=== PATIENT | female | born 1945 | race Caucasian/White ===

== ENCOUNTER 2018-01-28 08:29 | Emergency (ER) | payer MEDICARE, OTHER, SELFPAY ==
[2018-01-28 08:59] VITALS: BP 173/81; PULSE 78; RESP 16; TEMP 36.9; O2SAT 98; BMI 26.5
[2018-01-28 10:17] VITALS: BP 153/75; PULSE 82; RESP 16; TEMP 36.4; O2SAT 97
--- NOTE | 2018-01-28 10:31 | ED.WEAKNESS ---
HPI - Weakness General Chief complaint: Weakness Stated complaint: HAVEN'T SLEPT IN THREE WEEKS Time Seen by Provider: 01/28/18 09:10 Source: patient and old records reviewed Mode of arrival: ambulatory Limitations: no limitations History of Present Illness HPI Narrative: Patient is a 72-year-old female who presents with overall body weakness and insomnia. She was seen evaluated at [facility] on January 23 for the same. At that time she had blood work and her thyroid checked. Her TSH was noted to be 4.40. She was given a prescription for Ativan to help her sleep at night which she says is only making her more anxious and not helping her sleep. She says that she is able to do things for about 20 min at a time and then she needs to rest. She does like doing things. A month ago she was up from 7 a.m. to 9:30 p.m. on very busy. She is not that way now. She did have is from [place] a few weeks ago which she thinks set at all off. She really has no specific complaints. She has not had any fever headache chest pain cough shortness of breath nausea vomiting or other symptoms. MD Complaint: generalized weakness Related Data Home Medications Medication Instructions Recorded Confirmed levothyroxine 125 mg PO DAILY 01/28/18 01/28/18 lorazepam 0.5 mg PO BEDTIME PRN 01/28/18 01/28/18 Previous Rx's Medication Instructions Recorded levothyroxine 137 mcg PO DAILY #30 cap 01/28/18 Allergies Allergy/AdvReac Type Severity Reaction Status Date / Time No Known Drug Allergies Allergy Verified 01/28/18 08:59 Review of Systems Constitutional Denies increased appetite, Reports lethargy, Reports malaise, Denies night sweats, Denies stops breathing during sleep and Reports weakness Cardiovascular Denies chest pain, Denies irregular heart rhythm, Denies lightheadedness, Denies palpitations, Denies dyspnea, Denies dyspnea on exertion and Denies orthopnea Respiratory Denies cough, Denies dyspnea, Denies dyspnea on exertion and Denies wheezing Gastrointestinal Gastrointestinal: Denies abdominal pain, Denies change in bowel habits, Denies diarrhea, Denies nausea and Denies vomiting Musculoskeletal Denies back pain, Denies muscle weakness, Denies numbness and Denies tingling Integumentary/Breasts Denies pruritus, Denies erythema, Denies rash and Denies wounds Neurologic Denies numbness, Denies tingling and Reports weakness Endocrine Denies palpitations Allergic/Immunologic Denies wheezing PFSH Medical History Hypothyroid (Acute) Exam Initial Vital Signs Initial Vital Signs: Vital Signs Temperature 98.4 F 01/28/18 08:59 Pulse Rate 78 01/28/18 08:59 Respiratory Rate 16 01/28/18 08:59 Blood Pressure 173/81 H 01/28/18 08:59 Pulse Oximetry 98 01/28/18 08:59 GENERAL: Well-appearing, well-nourished and in no acute distress. HEENT: Head atraumatic,EOMI, pupils reactive, face symmetric, moist mucous membranes CARDIOVASCULAR: Regular rate and rhythm without murmurs, rubs or gallops. RESPIRATORY: Breath sounds equal bilaterally, no wheezes rales or rhonchi. ABDOMEN: Soft, nontender. Normoactive bowel sounds all 4 quadrants. No guarding or rebound. EXTREMITIES: Normal range of motion, no clubbing or edema. Neurovascularly intact NEUROLOGICAL: Alert and oriented x4.Normal gait and speech. Cranial nerves II through XII grossly intact. SKIN: Warm, dry, no laceration, no petechiae, no rashes or lesions. Course Orders Ordered: ED Orders 01/28/18 11:26 Complete Blood Count AUTO DIFF Stat Comprehensive Metabolic Panel Stat Discontinued Medications Sodium Chloride (Normal Saline 0.9%) 1,000 mls @ 1,000 mls/hr IV BOLUS ONE Stop: 01/28/18 11:45 Last Admin: 01/28/18 11:29 Dose: 1,000 mls/hr Vital Signs - 8 hr 01/28/18 08:59 01/28/18 10:17 01/28/18 12:40 Temperature 98.4 F 97.6 F 97.6 F Pulse Rate 78 82 87 Respiratory Rate 16 16 18 Blood Pressure 173/81 H Blood Pressure [Left Arm] 153/75 H 159/84 H Pulse Oximetry 98 97 96 MDM - Weakness Lab Data Result diagrams: 01/28/18 11:26 01/28/18 11:26 Lab Results 01/28/18 01/28/18 Range/Units 11:26 11:26 WBC 9.3 (4.5-11.0) X10^3/uL RBC 4.68 (4.0-5.2) X10^6/uL Hgb 13.9 (12.0-16.0) g/dL Hct 41.3 (36-46) % MCV 88.2 (80-100) fL MCH 29.7 (26-34) PG MCHC 33.6 (30-36) % RDW 14.4 (11.6-14.8) % Plt Count 346 (150-400) X10^3/uL Neut % (Auto) 77.2 H (50-75) % Lymph % (Auto) 13.7 L (25-40) % [place] % (Auto) 8.4 (3-14) % Eos % (Auto) 0.1 L (2-4) % Baso % (Auto) 0.6 (0-2) % Neut # (Auto) 7200 H (2609-5721) /uL Sodium 140 (137-145) mmol/L Potassium 3.6 (3.4-5.1) mmol/L Chloride 104 (98-107) mmol/L Carbon Dioxide 27 (22-32) mmol/L BUN 13 (7-17) mg/dL Creatinine 0.50 L (0.52-1.04) mg/dL Estimated GFR > 60.0 (>60) mL/min BUN/Creatinine Ratio 26.0 H (6-22) Glucose 101 (80-110) mg/dL Calcium 9.2 (8.4-10.2) mg/dL Total Bilirubin 0.4 (0.2-1.3) mg/dL AST 18 (14-36) IU/L ALT 22 (9-52) IU/L Alkaline Phosphatase 138 H (38-126) U/L Total Protein 7.6 (6.3-8.2) g/dL Albumin 4.1 (3.5-5.0) g/dL Globulin 3.5 (1.7-4.1) g/dL Albumin/Globulin Ratio 1.2 (1.0-2.8) MDM Narrative Medical decision making narrative: She is feeling better after IV fluids she a sandwich. Of blood work again looks within normal limits. I have reviewed records from [facility]. TSH is elevated at 4.4 which may explain some of her weakness and fatigue but not miss failure her insomnia. I feel like this may be more stress related. Head this time I will increase her levothyroxine. I recommend that she follow up with her primary care doctor to have her TSH rechecked and to see how she is feeling after this medication change. Discharge Plan Departure Patient Disposition: Home, Self-Care Clinical Impression: Hypothyroid Discharge Date/Time: 01/28/18 12:49 Interventions: ED Discharge Assessment Last Done: 01/28/18 12:48 Instructions: Hypothyroidism Activity Restrictions/Additional Instructions: *You have been diagnosed with hypothyroid *What to do: Her thyroid from [facility] labs were off. I recommend increasing your thyroid medication. You will need to have her thyroid recheck with your primary care provider in 4-6 week *Continue to take medications as directed [At your request you're medications have been faxed to] [facility] in [place] -stop taking levothyroxine 125mcg -start taking levothyroxine 137 mcg daily *Follow up with your primary care provider in 2-3 days [and follow up with ortho, urology etc] *Return to ER if you should have [such as] [or] any new, worsening or concerning symptoms Prescriptions: New levothyroxine 137 mcg capsule 137 mcg PO DAILY Qty: 30 RF: 0 No Action lorazepam 0.5 mg tablet 0.5 mg PO BEDTIME PRN (Reason: Insomnia) RF: 0 levothyroxine 125 mcg tablet 125 mg PO DAILY RF: 0 Referrals: Presley Barlow MD [Physician] -
--- NOTE | 2018-01-28 10:33 | PC.NURSE ---
states increased anxiety and insomnia x 3 weeks. States she has not slept for 3+ weeks. Has never had this in the past. Seen at [facility] and given ativan which has not been helpful. Pt reports that her thyroid tests were normal there. (Records requested). Pt denies SI/HI. Decreased po intake, weight loss. Neuro exam normal w/o deficit or focal weakness. Denies UTI symptoms, nausea / vomiting/ sob/ chest pain / headache.
[2018-01-28] MEDS: SODIUM CHLORIDE 0.9% 1,000 ML 1000 ML IV (11:29)
[2018-01-28 11:41] LABS: Add Manual Diff / Slide Review NO; Basophils Percent Auto 0.6 % (0-2); Eosinophils Percent Auto 0.1 % (2-4); Hematocrit 41.3 % (36-46); Hemoglobin 13.9 g/dL (12.0-16.0); Lymphocytes Percent Auto 13.7 % (25-40); Mean Corpuscular HGB Conc 33.6 % (30-36); Mean Corpuscular Hemoglobin 29.7 PG (26-34); Mean Corpuscular Volume 88.2 fL (80-100); Monocytes Percent Auto 8.4 % (3-14); Neutrophils Absolute Auto 7200 /uL (3000-5900); Neutrophils Percent Auto 77.2 % (50-75); Platelet Count 346 X10^3/uL (150-400); Red Blood Cell Count 4.68 X10^6/uL (4.0-5.2); Red Cell Distribution Width 14.4 % (11.6-14.8); White Blood Cell Count 9.3 X10^3/uL (4.5-11.0)
[2018-01-28 11:56] LABS: Alanine Aminotransferase 22 IU/L (9-52); Albumin 4.1 g/dL (3.5-5.0); Albumin Globulin Ratio 1.2 (1.0-2.8); Alkaline Phosphatase 138 U/L (38-126); Aspartate Aminotransferase 18 IU/L (14-36); Bilirubin Total 0.4 mg/dL (0.2-1.3); Blood Urea Nitrogen 13 mg/dL (7-17); Calcium 9.2 mg/dL (8.4-10.2); Carbon Dioxide 27 mmol/L (22-32); Chloride 104 mmol/L (98-107); Estimated Glomerular Filt Rate > 60.0 mL/min (>60); Globulin 3.5 g/dL (1.7-4.1); Glucose 101 mg/dL (80-110); HEMOLYSIS < 15 (0-50); Potassium 3.6 mmol/L (3.4-5.1); Sodium 140 mmol/L (137-145); Total Protein 7.6 g/dL (6.3-8.2)
[2018-01-28 12:40] VITALS: BP 159/84; PULSE 87; RESP 18; TEMP 36.4; O2SAT 96
== END 2018-01-28 12:49 | disposition home or self-care (01) ==
PROVIDERS: Emergency Provider Emergency Medicine
DX: E03.9 Hypothyroidism, unspecified (principal)
CPT/HCPCS: 36591; 80053; 85025; 96360; 99283; 99284

== ENCOUNTER → 2020-12-12 11:39 | Outpatient (CLI) | payer MEDICARE, OTHER, SELFPAY ==
--- NOTE | 2020-12-12 | DI.RAD.S_ITS ---
PROCEDURE: XR KNEE RT 3V INDICATIONS: R knee pain TECHNIQUE: 3 views of the knee were acquired. COMPARISON: None. FINDINGS: Bones: Acute fracture. Severe osteoarthritis. Moderate to large joint effusion. Severe narrowing of the medial joint space and [id number] narrowing of the patellofemoral joint space. IMPRESSION: Large joint effusion. Severe osteoarthritis. If the patient's pain or other symptoms persist, consider further evaluation with MRI Dictated by: Carlos Brandt M.D. on 12/12/2020 at 13:53 Approved by: Carlos Brandt M.D. on 12/12/2020 at 13:54
== END ==
PROVIDERS: Referring Provider Family Medicine; Visit Provider Family Medicine
DX: M25.561 Pain in right knee (principal); M17.11 Unilateral primary osteoarthritis, right knee; M25.461 Effusion, right knee
CPT/HCPCS: 73562

== ENCOUNTER → 2025-01-15 11:31 | Outpatient (CLI) | payer MEDICARE, OTHER, SELFPAY ==
--- NOTE | 2025-01-15 | DI.RAD.S_ITS ---
PROCEDURE: XR KNEE LT 3V INDICATIONS: LT KNEE PAIN TECHNIQUE: 3 views of the knee were acquired. COMPARISON: [facility], CR, XR KNEE RT 3V, 12/12/2020, 11:46. FINDINGS: Bones: Moderate diffuse generalized osseous demineralization. Moderate to severe medial and moderate lateral tibiofemoral and moderate to severe patellofemoral compartment narrowing with associated osteophytosis. Chondrocalcinosis. No fractures or dislocations. No suspicious bony lesions. Soft tissues: No joint effusion. No suspicious soft tissue calcifications. IMPRESSION: KL grade 3 tricompartmental osteoarthritis without evidence of acute osseous abnormality. Diffuse generalized osseous demineralization and chondrocalcinosis. Dictated by: Jourdan Littlejohn M.D. on 01/16/2025 at 1:58 Approved by: Jourdan Littlejohn M.D. on 01/16/2025 at 2:07
--- NOTE | 2025-01-15 | DI.RAD.S_ITS ---
PROCEDURE: XR FEMUR LT MIN 2V INDICATIONS: pain in unspecified thigh TECHNIQUE: 4 views of the femur were acquired. COMPARISON: None. FINDINGS: Bones: No fractures or dislocations. Severe advanced osteoarthritic degenerative change of the left hip includes complete joint space loss and severe flattening of the femoral head, marginal osteophytosis and acetabular and femoral subchondral sclerosis and cystic degeneration. Osteoarthritic degenerative changes of the left knee noted as well. No suspicious bony lesions. Soft tissues: No suspicious soft tissue calcifications or masses. IMPRESSION: Advanced degenerative change of the left hip and knee without evidence of acute bony abnormality. Dictated by: Jourdan Littlejohn M.D. on 01/16/2025 at 1:44 Approved by: Jourdan Littlejohn M.D. on 01/16/2025 at 1:58
== END ==
PROVIDERS: PCP Family Medicine; Referring Provider Family Medicine; Visit Provider Family Medicine
DX: M17.12 Unilateral primary osteoarthritis, left knee (principal); M11.262 Other chondrocalcinosis, left knee; M79.659 Pain in unspecified thigh
CPT/HCPCS: 73552; 73562